=== PATIENT | female | born 1955 | race Caucasian/White ===

== ENCOUNTER 2017-07-22 22:47 | Emergency (ER) | payer OTHER ==
[~2017-07-22] VITALS: Ht 162.6 cm; Wt 70.3 kg
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
[2017-07-23] MEDS ORDERED: LIDOCAINE 0.5% HCL 50 ML VIAL ONE (00:22)
[2017-07-23] MEDS ORDERED: ASPIRIN 300 MG/SUPP.RECT RC ONE (00:30)
[2017-07-23] MEDS ORDERED: LIDOCAINE HCL/PF 1% 30 ML VIAL TP ONE (00:30)
--- NOTE | 2017-07-23 00:35 | NUR ---
EMT BEDSIDE FOR WOUND CARE.
[2017-07-23 01:20] VITALS: BP 129/81
--- NOTE | 2017-07-23 01:20 | NUR ---
Patient discharged to home in stable condition. Written and verbal after care instructions given. Patient verbalizes understanding of instruction. AMBULATED OUT WITH STEADY GAIT. VSS
== END 2017-07-23 01:22 | disposition home or self-care (01) ==
LOC: ER 22:50
DX: S01.01XA Laceration without foreign body of scalp, initial encounter (principal); W01.190A Fall on same level from slipping, tripping and stumbling with subsequent striking against furniture, initial encounter; Y93.E5 Activity, floor mopping and cleaning; Y92.89 Other specified places as the place of occurrence of the external cause; Y99.8 Other external cause status
CPT/HCPCS: A4606; J3490; Z7610